=== PATIENT | female | born 1950 | race Caucasian/White ===

== ENCOUNTER → 2018-03-09 | Outpatient (CLI) | payer MEDICARE | LOC: OD 10:10 | PROVIDERS: ATTEND Internal Medicine Pulmonary Disease | DX: D86.9 Sarcoidosis, unspecified (principal) | CPT/HCPCS: 36415; 82164; 82310; 82340; 85652 ==

== ENCOUNTER → 2019-03-28 | Outpatient (CLI) | payer MEDICARE ==
--- NOTE | 2019-03-28 16:14 | RADIOLOGY REPORT (SQ) ---
EXAM DESCRIPTION: CHEST PA/LATERAL COMPLETED DATE/TIME: 03/28/2019 3:18 pm REASON FOR STUDY: SARCOIDOSIS COMPARISON: None. TECHNIQUE: PA and lateral views chest NUMBER OF VIEWS: 2 LIMITATIONS: None. FINDINGS: LUNGS AND PLEURA: No pneumothorax. No consolidation or pleural effusion. Scattered reticu lonodular opacities. MEDIASTINUM AND HILAR STRUCTURES: Multiple calcified lymph nodes. HEART AND VASCULAR STRUCTURES: Normal size. BONES: No acute findings. HARDWARE: None in the chest. OTHER: No other significant finding. IMPRESSION: No consolidation or pleural effusion. Scattered reticulonodular opacities. Multiple samantha cified mediastinal-hilar lymph nodes. TECHNICAL DOCUMENTATION: JOB ID: [id number] [id number] 2010 [employer]- All Rights Reserved Reading location - IP/workstation name: [email or web address]
[2019-03-30 12:37] LABS: CALCIUM RANDOM URINE 17.3 mg/dL (Not Estab.); CREATININE URINE 155.3 mg/dL (Not Estab.)
== END ==
LOC: OD 14:33
PROVIDERS: ATTEND Internal Medicine Pulmonary Disease
DX: D86.9 Sarcoidosis, unspecified (principal)
CPT/HCPCS: 36415; 71046; 82164; 82310; 82340; 82570; 85652